=== PATIENT | male | born 1995 | race Caucasian/White ===

== ENCOUNTER 2016-05-28 21:49 | Emergency (ER) ==
[2016-05-28 22:01] VITALS: BP 100/56; TEMP 99.4; BMI 22.1
--- NOTE | 2016-05-28 22:36 | ED.PDOC ---
General ED Provider: Dr. CHRISTIAN CLAYTON-ER Chief Complaint: Hip Pain/Injury Stated Complaint: my hip and back have been hurting for a long time...they are getting worse Time Seen by Physician: 21:55 Mode of Arrival: Walk-In Information Source: Patient, Family Exam Limitations: No limitations Nursing and Triage Documentation Reviewed and Agree: Yes Musculoskeletal Complaint Exam - Back Pain Complaint/Exam Mechanism of Injury: Reports: No known trauma Onset/Duration: several weeks Symptoms Are: Still present Timing: Constant Episodes Lasting: Weeks Initial Severity: Mild Current Severity: Moderate Location: Reports: Discrete (low back and right hip) Character: Reports: Dull, Aching Aggravating: Reports: Movements, Lifting, Bending, Walking Alleviating: Reports: None Associated Signs and Symptoms: Denies: Swelling, Redness, Bruising, Fever, Weakness, Numbness, Tingling, Abdominal pain, Flank pain, Bladder incontinence, Bowel incontinence, Weight loss, Pain with weight bearing Related History: Reports: Similar episode TAD Risk Factors: Reports: None AAA Risk Factors: Reports: None Cauda Equina Risk Factors: Reports: None Epidural Abcess Risk Factors: Reports: None Related Surgical History: Reports: None Focal Tenderness: Yes Paraspinal Muscle Tenderness: Yes Paraspinal Muscle Spasm: No Scoliosis: No Lordosis: No Kyphosis: No SLR Test: Right Negative, Left Negative Hip Motion Testing Pain: Right Negative, Left Negative Focal Weakness: Present: None Focal Sensory Loss: Present: None Gait: Present: Abnormal Differential Diagnoses: Arthritis, Herniated Disk, Strain, Sprain Review of Systems - Review Of Systems Constitutional: Reports: No symptoms Eyes: Reports: No symptoms Ears, Nose, Mouth, Throat: Reports: No symptoms Respiratory: Reports: No symptoms Cardiac: Reports: No symptoms GI: Reports: No symptoms : Reports: No symptoms Musculoskeletal: Reports: Back pain, Muscle pain Skin: Reports: No symptoms Neurological: Reports: No symptoms Endocrine: Reports: No symptoms Hematologic/Lymphatic: Reports: No symptoms All Other Systems: Reviewed and Negative Past Medical History - Past Medical History Endocrine: Reports: Unknown Cardiovascular: Reports: Unknown Respiratory: Reports: Unknown Hematological: Reports: Unknown Gastrointestinal: Reports: Unknown Genitourinary: Reports: Unknown Neuro/Psych: Reports: Unknown Musculoskeletal: Reports: Unknown Cancer: Reports: Unknown - Surgical History General Surgical History: Reports: Unknown - Family History Family History: Reports: Unknown - Social History Smoking Status: Current every day smoker Hx Substance Use: No Alcohol Screening: None Lives: With family - Immunizations Tetanus Shot up to Date: Yes Physical Exam - Physical Exam Appearance: Well-appearing, No pain distress, Well-nourished Pain Distress: Moderate Eyes: ABIOLA, EOMI, Conjunctiva clear ENT: Ears normal, Nose normal, Oropharynx normal Neck: Supple Respiratory: Airway patent, Breath sounds clear, Breath sounds equal, Respirations nonlabored Cardiovascular: RRR, Pulses normal, No rub, No murmur GI/: Soft, Nontender, No masses, Bowel sounds normal, No Organomegaly Musculoskeletal: Limited ROM Skin: Warm Neurological: Sensation intact, Motor intact, Reflexes intact, Cranial nerves intact, Alert, Oriented Psychiatric: Affect appropriate, Mood appropriate Interpretation - Radiology Interpretation Radiology Interpretation By: Radiologist Radiology Results: Positive Exam Interpreted: CT Scan Critical Care Note - Critical Care Note Total Time (mins): 0 Course - Course Orders, Labs, Meds: Orders Category Date Time Status Ketorolac Tromethamine [Toradol] MEDS 05/28/16 22:46 Discontinued 60 mg IM ONCE STA Orphenadrine Citrate [Norflex] MEDS 05/28/16 22:46 Discontinued 60 mg IM ONCE STA CT LUMBAR SPINE W/O CONTRAST Stat RADS 05/28/16 22:[address] PELVIS W/O CONTRAST Stat RADS 05/28/16 22:32 Completed Medications Discontinued Medications Generic Name Dose Route Start Last Admin Trade Name Freq PRN Reason Stop Dose Admin Ketorolac Tromethamine 60 mg 05/28/16 22:46 05/28/16 23:10 Toradol IM 05/28/16 22:47 60 mg ONCE STA Administration Orphenadrine Citrate 60 mg 05/28/16 22:46 05/28/16 23:04 Norflex IM 05/28/16 22:47 60 mg ONCE STA Administration Vital Signs: Temp Pulse Resp BP Pulse Ox 05/28/16 21:51 99.4 F 69 20 100/56 L 97 Departure - Departure Time of Disposition: 23:39 Disposition: HOME SELF-CARE Discharge Problem: Low back pain Qualifiers: Chronicity: acute Back pain laterality: midline Sciatica presence: without sciatica Qualifier Code: (M54.5) Low back pain Instructions: Acute Low Back Pain (ED) Condition: Good Pt referred to PMD for follow-up: Yes Additional Instructions: norco 5mg q 4hrs prn #15--flexeril 10mg tid prn #30--heat alt ice--recheck with clinic next week if not better Allergies/Adverse Reactions: Allergies No Known Allergies Allergy (Unverified 05/28/16 22:01) Home Medications: Ambulatory Orders 1 [No Reported Medications] 05/28/16 Disposition Discussed With: Patient, Family
[2016-05-28] MEDS: NORFLEX IM STA (23:04)
--- NOTE | 2016-05-28 23:06 | CT ---
EXAM: CT scan lumbar spine HISTORY: Low back pain COMPARISON: None. FINDINGS: Contiguous axial images were obtained through the lumbar spine utilizing 3-mm collimation . Sagittal and coronal reconstructions were imaged and reviewed.. The vertebral bodies are normal in height and alignment. The facet joints are intact.. There is mild levoscoliosis.. There is mul tilevel non compressive annular disc bulge. Facet arthropathy is noted at L4 through S1 IMPRESSION: Multilevel non compressive annular disc bulge. Facet arthropathy arthropathy lower lumbar spine
[2016-05-28] MEDS: TORADOL IM STA (23:10)
--- NOTE | 2016-05-28 23:11 | CT ---
EXAM: CT scan pelvis without contrast HISTORY: Hip pain COMPARISON: None. FINDINGS: Contiguous axial images obtained through the pelvis without contrast utilizing 3-mm colli mation. Sagittal and coronal reconstructions were imaged and reviewed.. Hip joints and SI joints a re intact. There is mild facet arthropathy lower lumbar spine.. There is no evidence of free fluid or inflammatory changes. IMPRESSION: Normal CT scan pelvis.
== END 2016-05-28 23:55 | disposition home or self-care (01) ==
LOC: ED 21:49
DX: M54.5 Low back pain (principal); M25.551 Pain in right hip; F17.210 Nicotine dependence, cigarettes, uncomplicated
CPT/HCPCS: 96372; 99282